=== PATIENT | male | born 1990 | race Caucasian/White ===

== ENCOUNTER 2018-04-29 07:55 | Emergency (ER) | payer OTHER ==
[2018-04-29] MEDS ORDERED: IOPAMIDOL (ISOVUE 370) 100 ML BTL IV ONE (09:27)
[2018-04-29 09:39] LABS: PLATELET COUNT 272 10^3/uL (150-400)
--- NOTE | 2018-04-29 10:02 | EDPHY ---
H & P Stated Complaint: facial paralysis(?bells palsy ) since 11am yesterday/rash under l axilla Time Seen by Provider: 04/29/18 08:51 HPI/ROS: CHIEF COMPLAINT: Left-sided facial weakness HISTORY OF PRESENT ILLNESS: 27-year-old male presents with left-sided facial weakness. Onset left facial weakness yesterday morning, associated with dizziness and a mild left-sided headache. He awoke yesterday with a mild left- sided headache, and then later noticed the left facial weakness. Associated with dizziness, especially when he moves his eyes laterally. No double vision, but feels that his eyes aren't tracking appropriately. 2 weeks ago, he had gradual onset of a severe left sided headache, associated with photophobia and nausea. The headache gradually resolved and he was asymptomatic until yesterday. No prior history of migraine headaches. No recent head or neck trauma and no chiropractic manipulation. REVIEW OF SYSTEMS: complete 10 point ROS negative except at noted in the HPI - Personal History Current Tetanus/Diphtheria Vaccine: Yes - Medical/Surgical History Hx Asthma: No Hx Chronic Respiratory Disease: No Hx Diabetes: No Hx Cardiac Disease: No Hx Renal Disease: No Hx Cirrhosis: No Hx Alcoholism: No Hx HIV/AIDS: No Hx Splenectomy or Spleen Trauma: No Other PMH: denies - Family History Significant Family History: No pertinent family hx (no migraine ARNOLD, brain tumor , aneurysm) - Social History Smoking Status: Never smoked - Physical Exam Exam: General Appearance: Alert, pleasant Eyes: Pupils equal and round, no conjunctival pallor or injection ENT, Mouth: Mucous membranes moist Neck: Normal inspection Respiratory: Lungs are clear to auscultation Cardiovascular: Regular rate and rhythm Gastrointestinal: Abdomen is soft and nontender Neurological: Alert, oriented x3, disconjugate gaze with lateral gaze ( bilateral) with 2-3 beats of nystagmus, left facial weakness involving the forehead, extremity motor 5/5, sensory intact Skin: Warm and dry Extremities: Normal inspection Psychiatric: Mood and affect normal Constitutional: Initial Vital Signs Temperature (C) 36.6 C 04/29/18 07:58 Heart Rate 77 04/29/18 07:58 Respiratory Rate 16 04/29/18 07:58 Blood Pressure 114/82 H 04/29/18 07:58 O2 Sat (%) 98 04/29/18 07:58 O2 Delivery Mode Room Air Allergies/Adverse Reactions: No Known Allergies Allergy (Unverified 04/29/18 07:58) Home Medications: Medication Instructions Recorded predniSONE 60 mg PO DAILY #15 tab 04/29/18 Medical Decision Making - Diagnostics Imaging Results: Head CT 04/29/18 09:06 Impression: No acute intracranial findings. Findings discussed with ISABELLE COLLINS 04/29/2018 at 10:20. Head CTA 04/29/18 09:13 Impression: 1. Normal CT angiogram of the head and neck. 2. Additional findings as above. Stenoses are calculated using [place] Symptomatic Carotid Endarterectomy Trial (NASCET) criteria. Findings discussed with ISABELLE COLLINS 04/29/2018 at 10:20. The patient will subsequently undergo MRI. Neck CTA 04/29/18 09:14 Impression: 1. Normal CT angiogram of the head and neck. 2. Additional findings as above. Stenoses are calculated using [place] Symptomatic Carotid Endarterectomy Trial (NASCET) criteria. Findings discussed with ISABELLE COLLINS 04/29/2018 at 10:20. The patient will subsequently undergo MRI. Brain MRI 04/29/18 10:21 Impression: Normal MRI of the brain without contrast. Results called and discussed with Dr. Isabelle Collins at 04/29/2018 13:08. ED Course/Re-evaluation: This pt presents with left facial weakness, nystagus, disconjucate gaze with lateral eye movements. Concerning presentation, not classic for Palacios's palsy, given multiple PE findings. Will start with CT/CTA head/neck to eval for serious etiologies such as ICH, aneursym, dissection. If negative, will plan for MRI. Results negative, d/w pt. Dr. Breen was consulted. He will follow up with the patient the office. I will place the patient on prednisone for cranial neuropathy. Diagnosis and eye care instructions discussed with the patient. Differential Diagnosis: Altered mental status including but not limited to Palacios's palsy, arterial dissection, aneurysm, hypoglycemia, electrolyte abnormality, head injury, CVA, and intoxicants. - Data Points Laboratory Results: Laboratory Results 04/29/18 09:19 04/29/18 09:19 Medications Given: Discontinued Medications Prednisone (Prednisone) 60 mg PO EDNOW ONE Stop: 04/29/18 14:20 Last Admin: 04/29/18 14:25 Dose: 60 mg Point of Care Test Results: Chemistry 04/29/18 09:25 POC Sodium 144 mEq/L mEq/L (135-145) POC Potassium 4.1 mEq/L mEq/L (3.3-5.0) POC Chloride 105 mEq/L mEq/L (97-110) POC BUN 18 mg/dL mg/dL (7-23) POC Creatinine 1.1 mg/dL mg/dL (0.7-1.3) POC Glucose 90 mg/dL mg/dL (70-100) ISTAT H&H 04/29/18 09:25 POC Hgb 16.7 gm/dL gm/dL (13.7-17.5) POC Hct 49 % % (40-51) Departure - Departure Disposition: Home, Routine, Self-Care Clinical Impression: Cranial neuropathy Condition: Good Instructions: Palacios Palsy (ED) Additional Instructions: Use artificial tears to lubricate the right eye. Wear and eye patch at night to keep your eye closed. Call Dr. Breen to make an appointment. Return for worsening symptoms or any concerns. Referrals: Janes Breen MD [Medical Doctor] - As per Instructions (Call to make an appointment.) Prescriptions: predniSONE 60 mg PO DAILY #15 tab
[2018-04-29] MEDS ORDERED: predniSONE 20 MG TAB PO ONE (14:19)
[2018-04-29 14:28] VITALS: BP 118/76
== END 2018-04-29 14:37 | disposition home or self-care (01) ==
DX: G52.9 Cranial nerve disorder, unspecified (principal)
CPT/HCPCS: 82435-PO; 82565-PO; 82947-PO; 84132-PO; 84295-PO; 84520-PO; 85014-PO; J7512; Q9967

== ENCOUNTER → 2018-08-18 | Outpatient (CLI) | payer OTHER ==
--- NOTE | 2018-08-20 08:18 | CPEEG ---
DATE OF STUDY: The patient is a 27-year-old, being evaluated for possible seizure. This study is obtained following partial sleep deprivation. The background consists of an 11-12 Hz posterior predominant symmetric a lpha rhythm, which attenuates on eye opening. Frontocentral beta activity is present. Photic stimul ation produces symmetric driving responses at some frequencies. Hyperventilation produces symmetric buildup. There are no areas of focal slowing and no epileptiform discharges. The patient has period s of drowsiness without sleep, with slowing of background rhythms. INTERPRETATION: This is a normal awake and drowsy EEG recording. /[id number]/MODL
== END ==
LOC: FCPNEURO 07:38
PROVIDERS: ATTEND Psychiatry & Neurology Neurology
DX: R56.9 Unspecified convulsions (principal)